=== PATIENT | male | born 1970 | race Two or more races ===

== ENCOUNTER 2020-05-01 13:42 | Emergency (ER) | payer SELFPAY ==
[~2020-05-01] VITALS: Ht 170.2 cm; Wt 65.8 kg
[2020-05-01 16:34] LABS: Basophils # (auto) 0 10 ^3/uL (0-0.2); Basophils % (auto) 0.1 % (0.0-2.0); Eosinophils # (auto) 0 10 ^3/uL (0-0.8); Hematocrit 41.4 % (41.0-53.0); Hemoglobin 14.5 g/dL (13.5-17.5); Lymphocytes # (auto) 0.2 10 ^3/uL (0.4-5.4); Mean Corpuscular Hemoglobin 33.6 pg (28.0-32.0); Mean Corpuscular Hgb Conc. 34.9 g/dL (32.0-36.0); Mean Corpuscular Volume 96.3 fL (80.0-100.0); Monocytes # (auto) 0.6 10 ^3/uL (0-1.3); Monocytes % (auto) 4.6 % (0.0-12.0); Neutrophils # (auto) 11.1 10 ^3/uL (1.6-8.6); Neutrophils % (auto) 93.3 % (37.0-80.0); Platelet Count (auto) 124 10^3/uL (140-450); Red Cell Distribution Width 13.2 % (11.8-14.3); White Blood Cell 11.9 10^3/uL (4.4-10.8)
[2020-05-01 16:46] LABS: Albumin 3.2 g/dL (3.4-5.0); Anion Gap 8 (5-15); Blood Urea Nitrogen 13 mg/dL (7-18); Calcium 8.1 mg/dL (8.5-10.1); Carbon Dioxide 29 mmol/L (21-32); Chloride 97 mmol/L (98-107); Glucose 107 mg/dL (74-106); Sodium 134 mmol/L (136-145)
[2020-05-01 16:48] VITALS: BP 141/70
[2020-05-01 16:53] LABS: Alanine Aminotransferase 63 U/L (16-61); Alkaline Phosphatase 74 U/L (45-117); Aspartate Aminotransferase 52 U/L (15-37); BUN/Creatinine Ratio 17.1; Bilirubin, Total 1.3 mg/dL (0.2-1.0); GFR African American 140 mL/min; GFR Non-African American 116 mL/min; Total Protein 6.9 g/dL (6.4-8.2)
[2020-05-01] MEDS ORDERED: LIDOCAINE 2% (LOCAL ANESTH.) PF 5ml SDV ONE (16:54)
[2020-05-01 17:00] LABS: Potassium 2.9 mmol/L (3.5-5.1)
[2020-05-01] MEDS ORDERED: TETANUS-DIPTH-ACEL PERTUSSIS 0.5ML SYR Tdap IM ONE (17:00)
[2020-05-01] MEDS ORDERED: POTASSIUM CHL 20 Meq TABLET PO ONE (17:15)
== END 2020-05-01 18:11 | disposition home or self-care (01) ==
LOC: ER 13:42 → EDBD 13:42 → ER 18:11
DX: S06.0X9A Concussion with loss of consciousness of unspecified duration, initial encounter (principal); M54.2 Cervicalgia; F17.210 Nicotine dependence, cigarettes, uncomplicated; E87.6 Hypokalemia; Z20.822 Contact with and (suspected) exposure to COVID-19; V43.52XA Car driver injured in collision with other type car in traffic accident, initial encounter; Y93.89 Activity, other specified; Y92.89 Other specified places as the place of occurrence of the external cause; Y99.8 Other external cause status
CPT/HCPCS: 36415; 70450; 71045; 72125; 80053; 84484; 85025; 87426; 90471; 90715; 99285; J2001